=== PATIENT | female | born 1975 | race Caucasian/White ===

== ENCOUNTER → 2021-06-28 | Emergency (ER) | payer MEDICAID ==
[~2021-06-28] VITALS: Ht 170.2 cm; Wt 138.2 kg
[~2021-06-28] MED LIST: ALBU18HF2 IH; BACL10TA PO; CEPH250T PO; CLIN-97 PO; DOXY100C77 PO; GABA-532 PO; HYDR-3965 PO; HYDR-4383 PO; LAMO25TA62 PO; LIDOcaine 1% W/epiNEPHrine 1:100,000 20ml vial ONE; LORA0.5T PO; METF500T PO; MYCOL30CR TP; OMEP-84 PO; ONDA4TAB6 PO; RANI-366 PO
[2021-06-28 09:26] VITALS: BP 126/79
== END | disposition home or self-care (01) ==
LOC: ER 09:18
DX: L02.211 Cutaneous abscess of abdominal wall (principal); L30.9 Dermatitis, unspecified; J45.909 Unspecified asthma, uncomplicated; K21.9 Gastro-esophageal reflux disease without esophagitis; E11.9 Type 2 diabetes mellitus without complications; G89.29 Other chronic pain; F41.9 Anxiety disorder, unspecified; F31.9 Bipolar disorder, unspecified; Z87.440 Personal history of urinary (tract) infections; Z86.14 Personal history of Methicillin resistant Staphylococcus aureus infection; Z98.51 Tubal ligation status; Z56.0 Unemployment, unspecified; Z90.89 Acquired absence of other organs; Z88.1 Allergy status to other antibiotic agents; Z88.8 Allergy status to other drugs, medicaments and biological substances; Z79.2 Long term (current) use of antibiotics; Z79.899 Other long term (current) drug therapy
CPT/HCPCS: 10060; 87070; 87077; 87186; 99283

== ENCOUNTER 2021-09-10 20:57 | Emergency (ER) | payer MEDICAID ==
[~2021-09-10] VITALS: Ht 170.2 cm; Wt 134.6 kg
[~2021-09-10 20:57] MED LIST changes: -CEPH250T PO; -DOXY100C77 PO; -HYDR-3965 PO; -LIDOcaine 1% W/epiNEPHrine 1:100,000 20ml vial ONE
[2021-09-10 21:02] VITALS: BP 146/75
[2021-09-10] MEDS ORDERED: DOXY100C76 PO (21:41)
[2021-09-10] MEDS ORDERED: CEPH250T PO (21:41)
== END 2021-09-10 21:49 | disposition home or self-care (01) ==
LOC: ER 20:57
DX: L02.416 Cutaneous abscess of left lower limb (principal); J44.9 Chronic obstructive pulmonary disease, unspecified; E11.9 Type 2 diabetes mellitus without complications; K21.9 Gastro-esophageal reflux disease without esophagitis; G89.29 Other chronic pain; M54.9 Dorsalgia, unspecified; F31.9 Bipolar disorder, unspecified; Z56.0 Unemployment, unspecified; Z88.5 Allergy status to narcotic agent; Z88.1 Allergy status to other antibiotic agents; Z88.2 Allergy status to sulfonamides; Z79.899 Other long term (current) drug therapy
CPT/HCPCS: 10060; 99283

== ENCOUNTER 2022-10-10 18:52 | Emergency (ER) | payer MEDICAID ==
[~2022-10-10] VITALS: Ht 170.2 cm; Wt 148.0 kg
[~2022-10-10 18:52] MED LIST changes: -MYCOL30CR TP; +NYST30CR35 TP
[2022-10-10 19:33] LABS: CLARITY,URINE CLEAR (Clear); COLOR,URINE YELLOW (Yellow); GLUCOSE, URINE >=1000 mg/dl (Neg); KETONES,URINE NEGATIVE (Neg); LEUKOCYTE ESTERASE ,URINE NEGATIVE (Neg); NITRITES, URINE NEGATIVE (Neg); OCCULT BLOOD,URINE NEGATIVE (Neg); PROTEIN,URINE NEGATIVE (Neg); UROBILINOGEN,URINE 0.2 E.U/dL (0.2-1.0)
[2022-10-10 19:39] LABS: UA COLLECTION TYPE CLN CATCH MIDSTREAM
[2022-10-10 19:41] LABS: BACTERIA,URINE FEW /HPF (Neg); RBC,URINE 0-2 /HPF (0-2); SQUAMOUS EPITHELIAL CELL,UR FEW /LPF (FEW); WBC,URINE 0-4 /HPF (0-4)
[2022-10-10 19:46] LABS: ALANINE AMINOTRANSFERASE 53 U/L (12-78); ALBUMIN 3.8 G/DL (3.4-5.0); ALBUMIN/GLOBULIN RATIO 1.2 (1.1-1.5); ALKALINE PHOSPHATASE 153 IU/L (46-116); ANION GAP 10 (8-16); ASPARTATE AMINO TRANSFERASE 38 U/L (10-37); BASOPHILS % (AUTO) 0.4 % (0-1); BILIRUBIN,TOTAL 0.4 MG/DL (0.1-1.0); BLOOD UREA NITROGEN 11 MG/DL (7-18); BUN/CREATININE RATIO 14.5 (6.6-38.0); CALCIUM 8.7 MG/DL (8.5-10.1); CHLORIDE 98 MMOL/L (99-107); CREATININE 0.76 MG/DL (0.40-0.90); EOSINOPHILS # (AUTO) 0.1 X10'3 (0-0.9); EOSINOPHILS % (AUTO) 1.5 % (0-6); HEMATOCRIT 42.4 % (35.0-45.0); HEMOGLOBIN 14.4 g/dl (12.0-16.0); LYMPHOCYTES % (AUTO) 20.9 % (21-51); MEAN CORPUSCULAR HEMOGLOBIN 28.9 PG (27.0-31.0); MEAN CORPUSCULAR VOLUME 85.2 FL (78-98); MEAN PLATELET VOLUME 9.3 FL (7.4-10.4); MONOCYTES # (AUTO) 0.7 X10'3 (0-0.9); MONOCYTES % (AUTO) 7.3 % (2-12); NEUTROPHILS # (AUTO) 6.8 X10'3 (1.8-7.7); NEUTROPHILS % (AUTO) 69.9 % (42-75); PLATELET COUNT 168 X10'3 (140-440); RED BLOOD COUNT 4.97 X10'6 (4.20-5.60); RED CELL DISTRIBUTION WIDTH 15.7 % (11.5-14.5); SODIUM 134 MMOL/L (135-145); TOTAL CARBON DIOXIDE 26.2 MMOL/L (24-32); TOTAL PROTEIN 7.1 G/DL (6.4-8.2); WHITE BLOOD COUNT 9.8 X10'3 (4.5-11.0); eGFR 82 ML/MIN
[2022-10-10 19:48] LABS: POTASSIUM 4.2 MMOL/L (3.5-5.1)
[2022-10-10 19:51] LABS: GLUCOSE 466 MG/DL (70-104)
[2022-10-11] MEDS ORDERED: CefTRIAXone/D5W-Rocephin 1gm 50 ML IV ONE (01:10)
[2022-10-11] MEDS ORDERED: acetaminophen 325mg tablet PO ONE (01:10)
[2022-10-11] MEDS ORDERED: normal saline 1000ML IV soln IVB ONE (01:10)
[2022-10-11] MEDS ORDERED: CEPH-585 PO (04:06)
[2022-10-11 04:45] VITALS: BP 131/72
--- NOTE | 2022-10-11 05:44 | NUR ---
0245 PT WITH REDNESS, WARMTH AND DRAINGAGE TO RIGHT LOWER LEG, STATES IT STARTED 3 DAYS AGO
== END 2022-10-11 05:46 | disposition home or self-care (01) ==
LOC: ER 18:52
DX: L03.115 Cellulitis of right lower limb (principal); K21.9 Gastro-esophageal reflux disease without esophagitis; E11.9 Type 2 diabetes mellitus without complications; G89.29 Other chronic pain; M54.50 Low back pain, unspecified; F31.9 Bipolar disorder, unspecified; Z88.5 Allergy status to narcotic agent; Z56.0 Unemployment, unspecified
CPT/HCPCS: 36415; 71045; 80053; 81001; 82948; 84484; 85025; 87040; 93005; 96365; 99285; J0696; J7030

== ENCOUNTER 2023-02-17 19:26 | Emergency (ER) | payer MEDICAID ==
[~2023-02-17] VITALS: Ht 167.6 cm; Wt 139.3 kg
[~2023-02-17 19:26] MED LIST changes: +CEPH-585 PO
[2023-02-17 19:31] VITALS: BP 152/94
[2023-02-17 20:03] LABS: BASOPHILS % (AUTO) 0.5 % (0-1); EOSINOPHILS # (AUTO) 0.1 X10'3 (0-0.9); EOSINOPHILS % (AUTO) 1.7 % (0-6); HEMOGLOBIN 14.6 g/dl (12.0-16.0); LYMPHOCYTES # (AUTO) 3.1 X10'3 (1.1-4.8); LYMPHOCYTES % (AUTO) 35.8 % (21-51); MEAN CORPUSCULAR HEMOGLOBIN 28.3 PG (27.0-31.0); MEAN CORPUSCULAR HGB CONC 33.9 g/dL (33.0-36.5); MEAN CORPUSCULAR VOLUME 83.4 FL (78-98); MEAN PLATELET VOLUME 9.3 FL (7.4-10.4); MONOCYTES # (AUTO) 0.5 X10'3 (0-0.9); MONOCYTES % (AUTO) 6.2 % (2-12); NEUTROPHILS # (AUTO) 4.9 X10'3 (1.8-7.7); NEUTROPHILS % (AUTO) 55.8 % (42-75); PLATELET COUNT 174 X10'3 (140-440); RED BLOOD COUNT 5.16 X10'6 (4.20-5.60); RED CELL DISTRIBUTION WIDTH 15.1 % (11.5-14.5); WHITE BLOOD COUNT 8.8 X10'3 (4.5-11.0)
[2023-02-17 20:09] LABS: ALANINE AMINOTRANSFERASE 59 U/L (12-78); ALBUMIN/GLOBULIN RATIO 1.4 (1.1-1.5); ALKALINE PHOSPHATASE 143 IU/L (46-116); ANION GAP 8 (8-16); ASPARTATE AMINO TRANSFERASE 33 U/L (10-37); BILIRUBIN,TOTAL 0.4 MG/DL (0.1-1.0); BLOOD UREA NITROGEN 14 MG/DL (7-18); BUN/CREATININE RATIO 18.4 (10.0-20.0); CHLORIDE 100 MMOL/L (99-107); CREATININE 0.76 MG/DL (0.40-0.90); GLUCOSE 347 MG/DL (70-104); MAGNESIUM 1.7 MG/DL (1.5-2.4); POTASSIUM 4.2 MMOL/L (3.5-5.1); SODIUM 135 MMOL/L (135-145); TOTAL CARBON DIOXIDE 26.8 MMOL/L (24-32); TOTAL PROTEIN 6.9 G/DL (6.4-8.2); eGFR 82 ML/MIN
== END 2023-02-17 22:23 | disposition left against medical advice (07) ==
LOC: ER 19:26
DX: R07.9 Chest pain, unspecified (principal); Z53.21 Procedure and treatment not carried out due to patient leaving prior to being seen by health care provider
CPT/HCPCS: 36415; 71045; 80053; 83735; 83880; 84484; 85025; 93005; 99281

== ENCOUNTER 2023-05-30 11:23 | Emergency (ER) | payer MEDICAID ==
[~2023-05-30] VITALS: Ht 170.2 cm; Wt 137.8 kg
[2023-05-30 11:57] VITALS: BP 179/83; PULSE 113; O2SAT 97
[2023-05-30 12:13] LABS: BASOPHILS % (AUTO) 0.5 % (0-1); EOSINOPHILS # (AUTO) 0.2 X10'3 (0-0.9); EOSINOPHILS % (AUTO) 2.2 % (0-6); HEMATOCRIT 44.9 % (35.0-45.0); HEMOGLOBIN 15.2 g/dl (12.0-16.0); LYMPHOCYTES % (AUTO) 26.8 % (21-51); MEAN CORPUSCULAR HEMOGLOBIN 28.9 PG (27.0-31.0); MEAN CORPUSCULAR HGB CONC 33.9 g/dL (33.0-36.5); MEAN CORPUSCULAR VOLUME 85.3 FL (78-98); MEAN PLATELET VOLUME 9.3 FL (7.4-10.4); MONOCYTES # (AUTO) 0.5 X10'3 (0-0.9); MONOCYTES % (AUTO) 6.9 % (2-12); NEUTROPHILS # (AUTO) 4.6 X10'3 (1.8-7.7); NEUTROPHILS % (AUTO) 63.6 % (42-75); PLATELET COUNT 160 X10'3 (140-440); RED BLOOD COUNT 5.27 X10'6 (4.20-5.60); RED CELL DISTRIBUTION WIDTH 15.6 % (11.5-14.5); WHITE BLOOD COUNT 7.3 X10'3 (4.5-11.0)
[2023-05-30 12:32] LABS: ALANINE AMINOTRANSFERASE 52 U/L (12-78); ALBUMIN 3.8 G/DL (3.4-5.0); ALBUMIN/GLOBULIN RATIO 1.1 (1.1-1.5); ALKALINE PHOSPHATASE 127 IU/L (46-116); ANION GAP 7 (8-16); ASPARTATE AMINO TRANSFERASE 36 U/L (10-37); BILIRUBIN,TOTAL 0.5 MG/DL (0.1-1.0); BLOOD UREA NITROGEN 14 MG/DL (7-18); BUN/CREATININE RATIO 17.7 (10.0-20.0); CALCIUM 9.2 MG/DL (8.5-10.1); CHLORIDE 101 MMOL/L (99-107); CREATININE 0.79 MG/DL (0.40-0.90); GLUCOSE 379 MG/DL (70-104); POTASSIUM 4.3 MMOL/L (3.5-5.1); SODIUM 135 MMOL/L (135-145); TOTAL CARBON DIOXIDE 26.6 MMOL/L (24-32); TOTAL PROTEIN 7.3 G/DL (6.4-8.2); eCRCL 87 ML/MIN; eGFR 79 ML/MIN
--- NOTE | 2023-05-30 12:36 | NUR ---
PT REPORTS GROUND LEVEL FALL AT WORK YESTERDAY, PT STATES " IM HAVING PAIN IN MY LEFT KNEE, ZAVALA, SHOULDER, NECK, ELBOW AND MY RIGHT ARM. I ALSO THINK I HIT MY HEAD."
[2023-05-30 12:39] LABS: PRO BRAIN NATRIURETIC PEPTIDE < 30 PG/ML (0-125)
[2023-05-30] MEDS ORDERED: NAPR-1154 PO (13:24)
[2023-05-30] MEDS ORDERED: CYCL-1 PO (13:24)
[2023-05-30] MEDS ORDERED: diazepam inj 5 MG/ML inj. IM ONE (13:25)
[2023-05-30] MEDS ORDERED: ketorolac tromethamine 15mg/ml inj. IM ONE (13:25)
[2023-05-30 13:50] VITALS: RESP 18
[2023-05-30 14:14] VITALS: TEMP 97.7
== END 2023-05-30 14:18 | disposition home or self-care (01) ==
LOC: ER 11:23
DX: S39.012A Strain of muscle, fascia and tendon of lower back, initial encounter (principal); J45.909 Unspecified asthma, uncomplicated; K21.9 Gastro-esophageal reflux disease without esophagitis; E11.9 Type 2 diabetes mellitus without complications; F31.9 Bipolar disorder, unspecified; Z88.5 Allergy status to narcotic agent; Z88.8 Allergy status to other drugs, medicaments and biological substances; Z91.041 Radiographic dye allergy status; Z79.1 Long term (current) use of non-steroidal anti-inflammatories (NSAID); Z79.2 Long term (current) use of antibiotics; Z79.899 Other long term (current) drug therapy; Z98.51 Tubal ligation status; W19.XXXA Unspecified fall, initial encounter; Y93.89 Activity, other specified; Y92.89 Other specified places as the place of occurrence of the external cause; Y99.8 Other external cause status
CPT/HCPCS: 36415; 80053; 83880; 84484; 85025; 96372; 99284; J1885; J3360

== ENCOUNTER 2023-11-25 08:18 | Emergency (ER) | payer MEDICAID ==
[~2023-11-25] VITALS: Ht 170.2 cm; Wt 132.1 kg
[~2023-11-25 08:18] MED LIST changes: -CEPH-585 PO; +CYCL-1 PO; +NAPR-1154 PO
[2023-11-25 08:23] VITALS: TEMP 97; O2SAT 98
[2023-11-25] MEDS ORDERED: FLUT16SP2 BOTHNARES (10:34)
[2023-11-25] MEDS ORDERED: METH4TAB3 PO (10:34)
[2023-11-25] MEDS ORDERED: AMOX-117 PO (10:34)
[2023-11-25] MEDS: ondansetron 4mg rapidly disintigrating tab PO ONE (11:19)
[2023-11-25 11:21] VITALS: RESP 16
[2023-11-25] MEDS: ketorolac trometh. 30mg/ml inj. IM ONE (11:21)
[2023-11-25 12:04] VITALS: BP 142/93; PULSE 129
== END 2023-11-25 12:24 | disposition home or self-care (01) ==
LOC: ER 08:19
DX: J32.8 Other chronic sinusitis (principal)
CPT/HCPCS: 96372; 99283; J1885

== ENCOUNTER 2024-11-26 18:07 | Emergency (ER) | payer MEDICAID ==
[~2024-11-26] VITALS: Ht 170.2 cm; Wt 140.9 kg
[~2024-11-26 18:07] MED LIST changes: +FLUT16SP2 BOTHNARES; +METH4TAB3 PO
[2024-11-26 18:30] VITALS: BP 128/71; PULSE 106; O2SAT 98
[2024-11-26] MEDS ORDERED: normal saline 1000ml 1,000 ML IV ONE (18:50)
[2024-11-26] MEDS: proCHLORperazine 10 MG/2 ml inj IV ONE (19:40)
[2024-11-26 19:41] VITALS: RESP 18
[2024-11-26] MEDS: ketorolac trometh 15mg/ml vial 15 MG/ML ML IV ONE (19:41)
[2024-11-26] MEDS: acetaminophen 1,000mg/100ml IV 100 ML IV ONE (19:42)
[2024-11-26] MEDS: insulin regular, human 10 units/0.1 ml syringe IV ONE (19:43)
[2024-11-26 20:26] VITALS: TEMP 98.1
== END 2024-11-26 20:27 | disposition home or self-care (01) ==
LOC: ER 18:08
DX: E11.65 Type 2 diabetes mellitus with hyperglycemia (principal); E86.0 Dehydration; G43.909 Migraine, unspecified, not intractable, without status migrainosus; M79.7 Fibromyalgia; M19.90 Unspecified osteoarthritis, unspecified site; K21.9 Gastro-esophageal reflux disease without esophagitis; F31.9 Bipolar disorder, unspecified; J45.909 Unspecified asthma, uncomplicated; Z88.5 Allergy status to narcotic agent; Z88.8 Allergy status to other drugs, medicaments and biological substances; Z88.1 Allergy status to other antibiotic agents; Z90.89 Acquired absence of other organs; Z98.51 Tubal ligation status
CPT/HCPCS: 96374; 96375; 99284; J0131; J0780; J1815; J1885; J7030

== ENCOUNTER 2024-11-28 08:11 | Emergency (ER) | payer MEDICAID, OTHER ==
[~2024-11-28] VITALS: Ht 170.2 cm; Wt 141.2 kg
[2024-11-28 08:16] VITALS: BP 175/92; PULSE 103; RESP 16; TEMP 97.8; O2SAT 98
== END 2024-11-28 08:47 | disposition home or self-care (01) ==
LOC: ER 08:12
DX: Z13.9 Encounter for screening, unspecified (principal); J45.909 Unspecified asthma, uncomplicated; K21.9 Gastro-esophageal reflux disease without esophagitis; M19.90 Unspecified osteoarthritis, unspecified site; E11.9 Type 2 diabetes mellitus without complications; M79.7 Fibromyalgia; G89.29 Other chronic pain; M54.9 Dorsalgia, unspecified; F31.9 Bipolar disorder, unspecified; Z98.51 Tubal ligation status; Z88.1 Allergy status to other antibiotic agents; Z90.89 Acquired absence of other organs; Z88.8 Allergy status to other drugs, medicaments and biological substances; Z79.899 Other long term (current) drug therapy; Z56.0 Unemployment, unspecified
CPT/HCPCS: 99281

== ENCOUNTER 2025-06-14 07:56 | Emergency (ER) | payer SELFPAY ==
[~2025-06-14] VITALS: Ht 170.2 cm; Wt 123.3 kg
[~2025-06-14 07:56] MED LIST changes: +CLIN-224 PO; -CLIN-97 PO; -NYST30CR35 TP; +NYST30CR46 TP
[2025-06-14 08:02] VITALS: TEMP 97.5
--- NOTE | 2025-06-14 10:08 | Physician Documentation ---
History of Present Illness ~ Chief Complaint: Flu Symptoms Stated Complaint: COLD SYMPTOMS Time Seen by MD: 09:11 Primary Medical Doctor: NONE Mode of Arrival: POV HPI Patient is seen today with complaints of cough and cold-like symptoms for the past 2-3 weeks. Patient states her cough became productive a few days ago. Patient states that all of her kids have been coming home from school with cough and cold like symptoms. She states she needs a note for work today. She denies any shortness of breath or fever or chills or bloody sputum or abdominal pain or chest pain or nausea, vomiting, diarrhea. She has no other concern or complaint at this time Medication Reconciliation Allergies: Coded Allergies: morphine (Unverified Allergy, Severe, 06/14/25) ziprasidone (Verified Allergy, Severe, 06/14/25) Causes SI erythromycin base (Unverified Allergy, Intermediate, 06/14/25) sumatriptan (Verified Allergy, Unknown, 06/14/25) sumatriptan succinate (Verified Allergy, Unknown, 06/14/25) Scheduled Albuterol Sulfate (Ventolin Hfa), 2 PUFFS IH TID PRN SOB, (Reported) Baclofen (Baclofen), 1 TABLET PO DAILY, (Reported) Clindamycin HCL* (Clindamycin HCL*), 1 CAP PO Q6H Cyclobenzaprine* (Cyclobenzaprine*), 1 TAB PO TID Fluticasone Propionate (Flonase), 2 SPRAYS BOTHNARES DAILY Gabapentin (Gabapentin), 1 CAP PO BID, (Reported) Lamotrigine* (Lamictal*), 1 TAB PO DAILY, (Reported) Metformin Hcl* (Glucophage*), 500 MG PO BID, (Reported) Methylprednisolone (Medrol), 1 TAB PO UD Naproxen (Naprosyn), 1 TAB PO Q12H Nystatin/Triamcin Cream* (Mycolog Cream*), 1 APPLIC TP BID Omeprazole* (Prilosec*), 40 MG PO DAILY, (Reported) Ranitidine Hcl (Zantac), 150 MG PO DAILY Scheduled PRN Hydrocodone/Acetaminophen ([place] 5-325 Tablet), 1 TABLET PO Q8H PRN for nausea/vomiting Lorazepam* (Ativan*), 1 TABLET PO TID PRN for anxiety, (Reported) Ondansetron Hcl (Zofran), 1 TABLET PO Q6H PRN for nausea/vomiting Past Medical History Past Medical History: Asthma, GERD, UTI, Diabetes, Chronic Pain, Chronic Back Pain, Fibromyalgia, Osteoarthritis, MRSA Abscess, Anxiety, Bipolar Past Surgical History: tonsillectomy, tubal ligation Other Past Family History: NONCONTRIBUTORY Alcohol Use: None Drug Use: none Lives with: Family Lives In: Home Occupation: unemployed Review of Systems Constitutional: Denies: chills, fever, weakness Eyes: Denies: pain, blurred vision ENT: Denies: ear pain, nose pain, throat pain, mouth pain Respiratory: Denies: cough, shortness of breath Cardiovascular: Denies: chest pain, palpitations Gastrointestinal: Denies: abdominal pain, nausea, vomiting Genitourinary: Denies: burning, dysuria Female Genitalia: Denies: vaginal discharge, pelvic pain Neurological: Denies: headache, dizziness Musculoskeletal: Denies: pain, swelling Integumentary: Denies: rash, lesions Allergic/Immunologic: Denies: hives, itching Hematologic/Lymphatic: Denies: no symptoms reported Psychiatric: Denies: depression, anxiety Physical Exam Vital Signs: Temperature: 97.5, Source: Oral, Heart Rate: 96, Respiratory Rate: 18, BP: 163/88, Pulse Oximetry: 95, Weight: 123.300 Oxygen Flow Rate: 0 Physical Exam General: Awake and Alert, no acute distress. HEENT: Conjunctiva pink, Sclera clear, Mucus Membranes moist. Neck: Supple without masses and tenderness. Resp: Unlabored. Lungs clear to auscultation bilaterally. Heart: Regular Rate and rhythm, normal S1 and S2 without murmur, rub or gallop. Abdomen: Soft and non tender no organomegaly Extremities: No cyanosis,clubbing or edema. Skin: Warm and Dry. Progress Results/Orders Results/Orders Vital Signs 06/14/25 06/14/25 06/14/25 08:02 08:38 08:42 Temp 97.5 Pulse 98 96 Resp 16 18 B/P (MAP) 142/71 163/88 (113) Pulse Ox 97 95 O2 Flow Rate 0 0 Medical Decision Making Findings Patient is seen today with complaints of cough and cold-like symptoms for the past 2-3 weeks. Patient states her cough became productive a few days ago. Patient states that all of her kids have been coming home from school with cough and cold like symptoms. She states she needs a note for work today. She denies any shortness of breath or fever or chills or bloody sputum or abdominal pain or chest pain or nausea, vomiting, diarrhea. She has no other concern or complaint at this time Patient will continue supportive care with increase rest and fluids and Tylenol ibuprofen and mucolytics as needed for symptomatic relief. Patient will follow up with primary care in 3-5 days if no better as needed sooner. Return to ED with any worsening, concerning or changing symptoms. Departure Disposition: HOME / SELF CARE / HOMELESS Impression: Primary Impression: Viral infection Additional Impressions: Cough Upper respiratory infection Qualified Codes: J06.9 - Acute upper respiratory infection, unspecified Condition: Stable Discharge Instructions: Viral Illness Additional Instructions: Patient will continue supportive care with increase rest and fluids and Tylenol ibuprofen and mucolytics as needed for symptomatic relief. Patient will follow up with primary care in 3-5 days if no better as needed sooner. Return to ED with any worsening, concerning or changing symptoms. Departure Forms: Excuse form Work or School Excused From: Work Excuse beginning now through the following date: Jun 16, 2025 Referrals: NO PRIMARY CARE PROVIDER (PCP) Signature Scribe Signature: No scribe Attestation: No scribe RAYMUNDO KING Jun 14, 2025 10:08
[2025-06-14 10:24] VITALS: BP 157/95; PULSE 78; RESP 18; O2SAT 98
== END 2025-06-14 10:25 | disposition home or self-care (01) ==
LOC: ER 07:57
DX: J06.9 Acute upper respiratory infection, unspecified (principal); R05.9 Cough, unspecified; B34.9 Viral infection, unspecified; K21.9 Gastro-esophageal reflux disease without esophagitis; E11.9 Type 2 diabetes mellitus without complications; F31.9 Bipolar disorder, unspecified; G89.29 Other chronic pain; J45.909 Unspecified asthma, uncomplicated; M19.90 Unspecified osteoarthritis, unspecified site; M79.7 Fibromyalgia; Z88.8 Allergy status to other drugs, medicaments and biological substances; Z88.1 Allergy status to other antibiotic agents; Z98.51 Tubal ligation status; Z88.5 Allergy status to narcotic agent; Z87.440 Personal history of urinary (tract) infections; Z86.14 Personal history of Methicillin resistant Staphylococcus aureus infection; Z79.84 Long term (current) use of oral hypoglycemic drugs; Z79.899 Other long term (current) drug therapy; Z56.0 Unemployment, unspecified
CPT/HCPCS: 99282